=== PATIENT | female | born 2000 | race Caucasian/White ===

== ENCOUNTER → 2021-09-03 | Outpatient (REF) ==
[2021-09-03 13:14] LABS: RSV AMPLIFICATION NEGATIVE (NEGATIVE)
== END ==
LOC: M EMP 11:41
PROVIDERS: ATTEND Family Medicine
DX: Z11.52 Encounter for screening for COVID-19 (principal)

== ENCOUNTER → 2021-09-16 | Outpatient (REF) ==
[2021-09-16 13:59] LABS: RSV AMPLIFICATION NEGATIVE (NEGATIVE)
== END ==
LOC: M LABSMTC 11:00
PROVIDERS: ATTEND Family Medicine
DX: Z11.52 Encounter for screening for COVID-19 (principal)

== ENCOUNTER 2022-05-11 11:15 | Emergency (ER) | payer BC ==
[~2022-05-11] VITALS: Ht 162.6 cm; Wt 102.3 kg
[2022-05-11 11:16] VITALS: BP 141/72
[2022-05-11] MEDS ORDERED: IBUP80TA (11:40)
[2022-05-11] MEDS ORDERED: KETOROLAC 30 MG/ML 1ML VIAL IV ONE (13:15)
[2022-05-11] MEDS ORDERED: ONDANSETRON 4MG/2ML VIAL IV ONE (13:15)
[2022-05-11 13:37] LABS: BASO # 0.1 10^3/uL (0.0-0.2); BASO % 0.7 % (0.0-1.0); EOS # 0.1 10^3/uL (0.0-0.5); EOS % 0.9 % (0.0-3.0); HEMATOCRIT 45.1 % (36.0-47.0); HEMOGLOBIN 14.5 g/dl (12.0-15.5); LYMPH # 1.7 10^3/uL (1.5-5.0); LYMPH % 19.3 % (24.0-44.0); MEAN CORPUSCULAR HGB CONC 32.2 g/dl (32.0-36.5); MEAN CORPUSCULAR VOLUME 90.2 fl (80.0-96.0); MONO # 0.4 10^3/uL (0.0-0.8); MONO % 5.1 % (2.0-8.0); NEUTROPHILS # 6.4 10^3/uL (1.5-8.5); NEUTROPHILS % 73.8 % (36.0-66.0); PLATELET COUNT, AUTOMATED 194 10^3/uL (150-450); WHITE BLOOD COUNT 8.7 10^3/uL (4.0-10.0)
[2022-05-11 14:08] LABS: ALBUMIN 4.1 GM/DL (3.2-5.2); ALT/SGPT 20 U/L (12-78); BILIRUBIN,DIRECT 0.1 MG/DL (0.0-0.2); BILIRUBIN,TOTAL 0.3 MG/DL (0.2-1.0); BLOOD UREA NITROGEN 10 MG/DL (7-18); CALCIUM LEVEL 9.4 MG/DL (8.5-10.1); CARBON DIOXIDE LEVEL 26 MEQ/L (21-32); CHLORIDE LEVEL 108 MEQ/L (98-107); CREATININE FOR GFR 0.67 MG/DL (0.55-1.30); GLUCOSE, FASTING 86 MG/DL (70-100); LIPASE 83 U/L (73-393); POTASSIUM SERUM 4.4 MEQ/L (3.5-5.1); SODIUM LEVEL 139 MEQ/L (136-145); TOTAL PROTEIN 7.1 GM/DL (6.4-8.2)
[2022-05-11] MEDS ORDERED: ISOVUE-370 76% 100ML VIAL As Ordered ONE (14:40)
[2022-05-11] MEDS ORDERED: CARA1TAB6 PO (16:39)
[2022-05-11] MEDS ORDERED: OMEP1CAP73 PO (16:39)
[2022-05-11] MEDS ORDERED: SUCRALFATE 1 GM TAB PO ONE (16:40)
[2022-05-11] MEDS ORDERED: PANTOPRAZOLE 40MG VIAL IV ONE (16:40)
== END 2022-05-11 17:18 | disposition home or self-care (01) ==
LOC: M ED 11:15
DX: R10.11 Right upper quadrant pain (principal)
CPT/HCPCS: 74177; 76705; 80048; 80076; 83690; 84702; 85025; 96374; 96375; 99283; C9113; J1885; J2405; Q9967

== ENCOUNTER → 2022-06-10 | Outpatient (CLI) | payer BC ==
[~2022-06-10] MED LIST: CARA1TAB6 PO; E-Z-GAS II EFFERVESCENT PACKET (SODIUM BICARB./CITRIC ACID/SIMETHICONE) As Ordered ONE; E-Z-HD 98% w/w 340GM SUSP BTL As Ordered ONE; E-Z-PAQUE 96% w/w SUSP 176GM BTL As Ordered ONE; IBUP80TA; OMEP1CAP73 PO
== END ==
LOC: M RAD 08:25
PROVIDERS: ATTEND Surgery
DX: K21.9 Gastro-esophageal reflux disease without esophagitis (principal); R10.11 Right upper quadrant pain; R11.0 Nausea

== ENCOUNTER → 2022-07-06 | Outpatient (REF) ==
[~2022-07-06] MED LIST changes: -E-Z-GAS II EFFERVESCENT PACKET (SODIUM BICARB./CITRIC ACID/SIMETHICONE) As Ordered ONE; -E-Z-HD 98% w/w 340GM SUSP BTL As Ordered ONE; -E-Z-PAQUE 96% w/w SUSP 176GM BTL As Ordered ONE
== END ==
LOC: M EMP 13:03
PROVIDERS: ATTEND Family Medicine
DX: Z11.52 Encounter for screening for COVID-19 (principal)

== ENCOUNTER → 2022-07-14 | Outpatient (CLI) | payer BC ==
[~2022-07-14] MED LIST changes: +MEDR150I12; +SERT-141 PO
== END ==
LOC: M RAD 07:53
PROVIDERS: ATTEND Surgery
DX: R10.11 Right upper quadrant pain (principal); R11.0 Nausea
CPT/HCPCS: 78227; A9537

== ENCOUNTER → 2022-07-18 | Outpatient (CLI) | payer BC | LOC: M LABSMTC 10:54 | PROVIDERS: ATTEND Anesthesiology | DX: Z01.812 Encounter for preprocedural laboratory examination (principal); Z20.822 Contact with and (suspected) exposure to COVID-19 ==

== ENCOUNTER 2022-07-22 09:48 | Day surgery (SDC) | payer BC ==
[~2022-07-22] VITALS: Ht 162.6 cm; Wt 102.5 kg
[~2022-07-22 09:48] MED LIST changes: +NS 1,000 ML IV ONE
[2022-07-22] MEDS ORDERED: fentaNYL 100 MCG/2 ML INJECTION As Ordered ONE (11:15)
[2022-07-22] MEDS ORDERED: propofoL 200 MG/20 ML VIAL As Ordered ONE (11:19)
[2022-07-22] MEDS ORDERED: LIDOCAINE 2% 100MG/5ML SDV (FOR ANES.) As Ordered ONE (11:19)
[2022-07-22 11:45] VITALS: BP 121/71
== END 2022-07-22 11:50 | disposition home or self-care (01) ==
LOC: M OPP 09:48
PROVIDERS: ATTEND Surgery
DX: K21.00 Gastro-esophageal reflux disease with esophagitis, without bleeding (principal); K29.60 Other gastritis without bleeding; F41.9 Anxiety disorder, unspecified; F32.9 Major depressive disorder, single episode, unspecified; Z79.3 Long term (current) use of hormonal contraceptives; Z79.899 Other long term (current) drug therapy
CPT/HCPCS: 43239; 88305; J3010

== ENCOUNTER → 2023-07-01 | Outpatient (CLI) | payer BC ==
[~2023-07-01] MED LIST changes: +ALBU6.7H6 INH; -NS 1,000 ML IV ONE
[2023-07-01 17:31] LABS: HEMATOCRIT 40.1 % (36.0-47.0); MEAN CORPUSCULAR HEMOGLOBIN 29.4 pg (27.0-33.0); MEAN CORPUSCULAR HGB CONC 32.4 g/dl (32.0-36.5); MEAN CORPUSCULAR VOLUME 90.7 fl (80.0-96.0); PLATELET COUNT, AUTOMATED 177 10^3/uL (150-450); RED BLOOD COUNT 4.42 10^6/uL (4.00-5.40); WHITE BLOOD COUNT 11.2 10^3/uL (4.0-10.0)
[2023-07-01 18:29] LABS: HIV 1&2 SCREEN NEGATIVE (NEGATIVE)
[2023-07-01 18:36] LABS: HEPATITIS C VIRUS ABY INDEX 0.12 INDEX (<0.8)
[2023-07-01 18:52] LABS: GC DNA AMPLIFICATION NEGATIVE (NEGATIVE)
== END ==
LOC: M PLALAB 15:47
PROVIDERS: ATTEND Advanced Practice Midwife
DX: Z34.81 Encounter for supervision of other normal pregnancy, first trimester (principal)

== ENCOUNTER 2023-07-04 20:15 | Emergency (ER) | payer BC ==
[~2023-07-04] VITALS: Ht 162.6 cm; Wt 95.5 kg
[~2023-07-04 20:15] MED LIST changes: -ALBU6.7H6 INH
[2023-07-04 20:16] VITALS: BP 130/72; TEMP 98.6; O2SAT 100
[2023-07-05] MEDS ORDERED: ALBU6.7H6 INH (00:28)
== END 2023-07-05 00:37 | disposition home or self-care (01) ==
LOC: M ED 20:15
DX: J06.9 Acute upper respiratory infection, unspecified (principal); Z79.52 Long term (current) use of systemic steroids; Z79.899 Other long term (current) drug therapy

== ENCOUNTER → 2023-08-01 | Outpatient (REF) | payer BC ==
[~2023-08-01] MED LIST changes: +ALBU6.7H6 INH
== END ==
LOC: M SFHCWAGY 13:04
PROVIDERS: ATTEND Advanced Practice Midwife
DX: Z34.82 Encounter for supervision of other normal pregnancy, second trimester (principal)

== ENCOUNTER → 2023-09-05 | Outpatient (CLI) | payer BC | LOC: M WHC 09:01 | PROVIDERS: ATTEND Advanced Practice Midwife | DX: Z34.82 Encounter for supervision of other normal pregnancy, second trimester (principal) ==

== ENCOUNTER → 2023-12-08 | Outpatient (CLI) | payer BC ==
[2023-12-08 13:55] LABS: HEMATOCRIT 38.7 % (36.0-47.0); HEMOGLOBIN 12.3 g/dl (12.0-15.5); MEAN CORPUSCULAR HEMOGLOBIN 28.5 pg (27.0-33.0); MEAN CORPUSCULAR HGB CONC 31.8 g/dl (32.0-36.5); MEAN CORPUSCULAR VOLUME 89.6 fl (80.0-96.0); PLATELET COUNT, AUTOMATED 175 10^3/uL (150-450); RED BLOOD COUNT 4.32 10^6/uL (4.00-5.40); WHITE BLOOD COUNT 9.3 10^3/uL (4.0-10.0)
== END ==
LOC: M PLALAB 09:20
PROVIDERS: ATTEND Obstetrics & Gynecology
DX: Z36.89 Encounter for other specified antenatal screening (principal); Z3A.25 25 weeks gestation of pregnancy

== ENCOUNTER 2024-01-07 18:45 | Outpatient (CLI) | payer BC ==
[~2024-01-07] VITALS: Ht 162.6 cm; Wt 102.3 kg
[2024-01-07 19:02] VITALS: BP 129/72
[2024-01-07] MEDS ORDERED: PRENTAB9 PO (19:05)
[2024-01-07] MEDS ORDERED: HOME MED LIST COMPLETE! XX SCH (19:05)
== END 2024-01-07 19:30 | disposition home or self-care (01) ==
LOC: M LDO 18:45
PROVIDERS: ATTEND Obstetrics & Gynecology
DX: O47.03 False labor before 37 completed weeks of gestation, third trimester (principal); Z3A.36 36 weeks gestation of pregnancy
CPT/HCPCS: 59025; G0463

== ENCOUNTER → 2024-01-11 | Outpatient (REF) | payer BC ==
[~2024-01-11] MED LIST changes: +PRENTAB9 PO
== END ==
LOC: M PLALAB 08:46
PROVIDERS: ATTEND Obstetrics & Gynecology
DX: Z36.89 Encounter for other specified antenatal screening (principal); Z3A.37 37 weeks gestation of pregnancy

== ENCOUNTER 2024-01-28 08:00 | Inpatient (IN) | payer BC ==
[~2024-01-28] VITALS: Ht 162.6 cm; Wt 103.6 kg
[2024-01-28] VITALS (24 sets, daily range): BP systolic 101–129; BP diastolic 54–77
[2024-01-28] MEDS ORDERED: AMOX875T PO (08:34)
[2024-01-28] MEDS ORDERED: AMOX875T2 (08:34)
[2024-01-28] MEDS ORDERED: HOME MED LIST COMPLETE! XX SCH (08:35)
[2024-01-28] MEDS ORDERED: OXYTOCIN DRIP 30 UNITS in IV 1 EA IV PRN (08:55)
[2024-01-28] MEDS: miSOPROStol 50MCG 1/2 TABLET SL SCH (09:35)
[2024-01-28 09:43] LABS: HEMATOCRIT 39.9 % (36.0-47.0); MEAN CORPUSCULAR HEMOGLOBIN 27.3 pg (27.0-33.0); MEAN CORPUSCULAR HGB CONC 32.6 g/dl (32.0-36.5); MEAN CORPUSCULAR VOLUME 83.8 fl (80.0-96.0); PLATELET COUNT, AUTOMATED 184 10^3/uL (150-450); RED BLOOD COUNT 4.76 10^6/uL (4.00-5.40)
[2024-01-28] MEDS: ONDANSETRON 4MG 2ML VIAL IV ONE (21:21)
[2024-01-28] MEDS: PENICILLIN G POTASSIUM 5 MU IV 5 MU in D5W MINI-BAG PLUS 100 ML IV STA (21:32)
[2024-01-28] MEDS ORDERED: EPIDURAL/PCA KEYS XX PRN (22:55)
[2024-01-28] MEDS ORDERED: ONDANSETRON 4MG 2ML VIAL IV PRN (22:55)
[2024-01-28] MEDS ORDERED: LR 500 ML IV PRN (22:55)
[2024-01-28] MEDS ORDERED: diphenhydrAMINE 50MG/ML VIAL IV PRN (22:55)
[2024-01-28] MEDS ORDERED: ePHEDrine SULFATE 25 MG/5 ML(5MG/ML) SYRINGE IVP PRN (22:55)
[2024-01-28] MEDS ORDERED: NALOXONE INJ 0.4MG/1ML VIAL IV PRN (22:55)
[2024-01-28] MEDS: FENTANYL/ROPIVACAINE/NACL BAG 100 ML EPIDURAL SCH (23:34)
[2024-01-28] MEDS: LR 1,000 ML IV SCH (23:35)
[2024-01-29] VITALS (22 sets, daily range): BP systolic 102–135; BP diastolic 53–87; O2SAT 98
[2024-01-29] MEDS: OXYTOCIN DRIP 30 UNITS in IV 1 EA IV SCH (01:20)
[2024-01-29] MEDS: PEN G POT 3,000,000 UNIT/50 ML 3,000,000 UNIT in IV 1 EA IV SCH (01:21)
[2024-01-29] MEDS: LIDOCAINE 1% MDV 20ML VIAL INFIL PRN (08:33)
[2024-01-29] MEDS ORDERED: ACETAMINOPHEN 500 MG TAB PO PRN (09:50)
[2024-01-29] MEDS ORDERED: DOCUSATE SODIUM 100MG CAPSULE PO PRN (09:50)
[2024-01-29] MEDS ORDERED: DIBUCAINE 1% OINTMENT 30GM TOP PRN (09:50)
[2024-01-29] MEDS ORDERED: ACETAMINOPHEN TAB 650MG DOSE (2X325MG) PO PRN (09:50)
[2024-01-29] MEDS ORDERED: IBUPROFEN 600MG TAB PO PRN (09:50)
[2024-01-29] MEDS ORDERED: METHYLERGONOVINE MALEATE 0.2 MG TAB PO PRN (09:50)
[2024-01-29] MEDS: IBUPROFEN 800 MG TAB PO PRN (10:12)
[2024-01-30 06:00] VITALS: BP 115/57; O2SAT 96
[2024-01-30] MEDS: RHOGAM 300MCG (1500IU) INJ IM SCH (07:08)
[2024-01-30] MEDS: PRENATAL VITAMINS CHEWABLE TABLET PO SCH (08:02)
[2024-01-30] MEDS ORDERED: IBUP80TA PO (11:49)
[2024-01-30] MEDS ORDERED: ACET-683 PO (11:49)
[2024-01-31] MEDS ORDERED: MEASLES,MUMPS,RUBELLA VACCINE INJ (MMR-II) SC.IMMUN ONE (09:00)
== END 2024-01-30 13:05 | disposition home or self-care (01) | DRG 560 ==
LOC: M LDI 08:00 → M OBS 01-29 10:20
PROVIDERS: ADMIT Specialist; ATTEND Specialist
PROC: 3E0P7GC Introduction of Other Therapeutic Substance into Female Reproductive, Via Natural or Artificial Opening (ICD-10-PCS; 2024-01-28)
PROC: 10E0XZZ Delivery of Products of Conception, External Approach (ICD-10-PCS; principal; 2024-01-29)
PROC: 0KQM0ZZ Repair Perineum Muscle, Open Approach (ICD-10-PCS; 2024-01-29)
DX: O99.824 Streptococcus B carrier state complicating childbirth (principal); O77.0 Labor and delivery complicated by meconium in amniotic fluid; O69.81X0 Labor and delivery complicated by cord around neck, without compression, not applicable or unspecified; Z37.0 Single live birth; Z3A.39 39 weeks gestation of pregnancy; O70.1 Second degree perineal laceration during delivery